=== PATIENT | female | born 2000 | race Caucasian/White ===

== ENCOUNTER 2024-07-20 18:58 | Inpatient (IN) | payer OTHER, SELFPAY ==
[2024-07-20 19:47] LABS: Hematocrit 37.2 % (36.0-48.0); Hemoglobin 12.4 g/dL (12.0-16.0); Mean Corpuscular HGB Conc 33.3 g/dL (29.9-35.2); Mean Corpuscular Hemoglobin 30.5 pg (26.7-34.0); Mean Corpuscular Volume 91.6 fL (81.0-99.0); Platelet Count 267 10^3/uL (150-450); Red Blood Count 4.06 10^6/uL (4.20-5.40); Red Cell Distribution Width 13.1 % (11.0-15.0)
[2024-07-20] MEDS: LACTATED RINGER'S SOLUTION 1,000 ML 125 ML IV (19:55)
[2024-07-20 19:58] LABS: Amphetamine Screen Urine NEGATIVE (NEGATIVE); Barbiturates Screen Urine NEGATIVE (NEGATIVE); Benzodiazepines Screen Urine NEGATIVE (NEGATIVE); Buprenorphine Screen Urine NEGATIVE (NEGATIVE); Cannabinoid Screen Urine NEGATIVE (NEGATIVE); Cocaine Screen Urine NEGATIVE (NEGATIVE); Methadone Screen Urine NEGATIVE (NEGATIVE); Methamphetamines Screen Urine NEGATIVE (NEGATIVE); Opiate Screen Urine NEGATIVE (NEGATIVE); Oxycodone Screen Urine NEGATIVE (NEGATIVE); Phencyclidine Screen Urine NEGATIVE (NEGATIVE); Tricyclic Antidepressant Urine NEGATIVE (NEGATIVE)
[2024-07-20] MEDS: OXYTOCIN/0.9 % SODIUM CHLORIDE 10 UNITS/500 ML PLAST..BAG 6 UNIT IV (20:21)
[2024-07-20 20:30] VITALS: BP 140/71; PULSE 93
[2024-07-20 21:00] VITALS: BP 131/83; PULSE 95
[2024-07-20 21:30] VITALS: BP 137/86; PULSE 80
[2024-07-20 22:00] VITALS: BP 144/92; PULSE 89
[2024-07-20 22:30] VITALS: BP 118/67; PULSE 70
[2024-07-20 23:00] VITALS: BP 124/72; PULSE 68
[2024-07-21] VITALS (55 sets, daily range): BP systolic 98–139; BP diastolic 54–91; PULSE 61–137; TEMP 36.3–37.4
[2024-07-21] MEDS: LACTATED RINGER'S SOLUTION 1,000 ML 125 ML IV ×2 (03:47→12:08)
[2024-07-21] MEDS: OXYTOCIN/0.9 % SODIUM CHLORIDE 10 UNITS/500 ML PLAST..BAG 6 UNIT IV (09:28)
[2024-07-21] MEDS: ONDANSETRON PF 4 MG/2 ML VIAL IV (13:02)
[2024-07-21] MEDS: NALBUPHINE HCL 10 MG/ML AMPULE 20 MG IM (13:15)
--- NOTE | 2024-07-21 14:34 | US_ITS ---
[address] [address] Patient Name: CRISPIN AYTES MRN: [id number] date: 2000 Sex: F Assigned Patient Location: [facility] Current Patient Location: [facility] Accession/Order Number: [id number] Exam Date: 07/21/2024 14:37 Report Date: 07/21/2024 15:05 At the request of: ODIN HOOK Procedure: US OB limited EXAM: US OB limited HISTORY: VERIFY PRESENTATION COMPARISON: None. TECHNIQUE: Transabdominal ultrasound. FINDINGS: Redictation: Cephalic Heart rate: 122 bpm GA: 40 weeks 4 days KEO: 07/17/2024 US/US OB limited IMPRESSION: 1. Single live intrauterine . 2. Cephalic presentation. Electronically authenticated by: ROSA ELNEA MCLEAN Date: 07/21/2024 15:05
[2024-07-21] MEDS: ROPIVACAINE HCL/PF 400 MG/200 ML PREMIX 6 MG EPIDURAL (15:00)
[2024-07-21] MEDS: EPHEDRINE SULFATE 50 MG/ML VIAL IV (15:00)
[2024-07-21] MEDS: LIDOCAINE VISCOUS 2% 15 ML SOLUTION 5 ML TOPICAL (17:47)
[2024-07-21] MEDS: OXYTOCIN/0.9 % SODIUM CHLORIDE 20 UNITS/1,000 ML PLAST..BAG 125 UNIT IV (18:47)
--- NOTE | 2024-07-21 19:35 | PM.OBPRCVD ---
Procedure Induction method: per pitocin protocol Delivery augmentation: rupture of membranes Delivery monitor: external FHT and external uterine Route of delivery: Episiotomy Description: none L&D Laceration Description: perineal - 2nd degree Delivery repair: Vicryl Estimated blood loss (mL): 400 Anesthesia type: None Infant Delivery date: 07/21/24 Gender: male presentation: compound (left hand presentation ) Placental delivery description: Expressed cord description: 3 Vessels heart rate - 1 minute: 100 bpm or Greater respiratory effort - 1 minute: Spontaneous/Strong Cry muscle tone - 1 minute: Active Movement reflex response - 1 minute: Prompt Response color - 1 minute: Bluish Hands or Feet total score - 1 minute: 9 heart rate - 5 minute: 100 bpm or Greater respiratory effort - 5 minute: Spontaneous/Strong Cry muscle tone - 5 minute: Active Movement reflex response - 5 minute: Prompt Response color - 5 minute: Bluish Hands or Feet total score - 5 minute: 9
--- NOTE | 2024-07-21 19:44 | PC.NURSE ---
1830 placenta remains undelivered, tc to dr yadav. 1838 dr yadav arrives and does some massage internally. 1840 placenta delivers intact pitocin hung at 999ml.hr, repair ongoing.
[2024-07-21] MEDS: IBUPROFEN 400 MG TABLET 800 MG PO (21:40)
[2024-07-21] MEDS: FERROUS SULFATE 325 MG TABLET PO (21:40)
[2024-07-22] MEDS: IBUPROFEN 400 MG TABLET 800 MG PO ×3 (03:24→20:52)
[2024-07-22 07:07] LABS: Basophils Percent Auto 0.2 % (0.2-2.0); Eosinophils Absolute Auto 0.1 10^3/uL (0.0-0.7); Eosinophils Percent Auto 0.3 % (0.9-7.0); Hematocrit 27.7 % (36.0-48.0); Immature Granulocytes Pct Auto 0.6 % (0.0-0.5); Lymphocytes Absolute Auto 2.9 10^3/uL (1.2-3.8); Mean Corpuscular HGB Conc 32.5 g/dL (29.9-35.2); Mean Corpuscular Hemoglobin 30.3 pg (26.7-34.0); Mean Corpuscular Volume 93.3 fL (81.0-99.0); Mean Platelet Volume 10.7 fL (9.5-13.5); Monocytes Absolute Auto 1.4 10^3/uL (0.3-0.8); Neutrophils Absolute Auto 13.4 10^3/uL (1.4-6.5); Neutrophils Percent Auto 74.9 % (43.0-75.0); Platelet Count 241 10^3/uL (150-450); Red Blood Count 2.97 10^6/uL (4.20-5.40); Red Cell Distribution Width 13.4 % (11.0-15.0); White Blood Count 17.9 10^3/uL (4.0-11.0)
[2024-07-22] MEDS: FERROUS SULFATE 325 MG TABLET PO ×2 (09:25→20:52)
[2024-07-22] MEDS: DOCUSATE SODIUM 100 MG CAPSULE PO ×2 (09:25→20:52)
[2024-07-22 09:29] VITALS: BP 133/75; PULSE 117; TEMP 36.8
--- NOTE | 2024-07-22 10:10 | P.OBPN_ITS ---
OB - PN: Subj Subjective Patient comments: no complaints Banner status: doing well feeding status: exclusively Exam Constitutional Vital Signs, click to edit/add: Last Vital Signs Temp 98.2 F 07/22/24 09:29 Pulse 117 H 07/22/24 09:29 Resp 16 07/22/24 09:30 BP 133/75 07/22/24 09:29 O2 Del Method Room Air 07/22/24 09:33 Documenting provider has reviewed patient's vital signs: yes Common normals: no apparent distress, average body habitus, oriented x3, no li mitations, healthy appearing, alert and well nourished Orientation/consciousness: Yes awake, Yes oriented to person, Yes oriented to place and Yes oriented to time HENMT Common normals: normocephalic Eye Common normals: EOMs intact bilaterally Neck & C-Spine Common normals: full ROM Lymph Lymphatic: no lymphadenopathy noted Chest Common normals: inspection of chest normal Respiratory Common normals: normal respiratory effort, no retractions, no use of accessory muscles, clear to auscultation bilaterally and percussion normal Auscultation: clear to auscultation bilaterally Cardio Common normals: regular rate and regular rhythm Rate: regular rate Rhythm: regular rhythm GI Common normals: Normal to inspection, nondistended, normoactive bowel sounds present Back & Pelvis Common normals: no CVA tenderness Extremity Common normals: normal to inspection Neuro Common normals: oriented x3 Sensorium/orientation: awake, alert, oriented to person, oriented to place and oriented to time Psych Common normals: mental status grossly normal, thought process normal and cooperative Attitude: calm Results Labs Labs: Short CBC 07/22/24 Range/Units 07:01 WBC 17.9 H (4.0-11.0) 10^3/uL Hgb 9.0 L (12.0-16.0) g/dL Hct 27.7 L (36.0-48.0) % Plt Count 241 (150-450) 10^3/uL OB - PN: A/P Plan - Vaginal Delivery day: 1 Plan: routine care Time Spent with Patient Time: Total time spent is greater than 50% in coordination of care (as documented) at patient's floor/unit and/or counseling patient: Total time spent with greater than 50% in coordination of care (as documented) at patient's floor/unit and/or counseling patient: less than 15 minutes
[2024-07-22] MEDS: ACETAMINOPHEN 325 MG TABLET 650 MG PO (13:23)
[2024-07-22 17:09] VITALS: BP 123/69; PULSE 95; TEMP 36.8
[2024-07-23 00:07] VITALS: BP 121/63; PULSE 76
[2024-07-23] MEDS: IBUPROFEN 400 MG TABLET 800 MG PO (04:10)
--- NOTE | 2024-07-23 08:38 | PM.OBPN ---
OB - PN: Subj Subjective Patient comments: no complaints and pain well controlled [place] status: doing well Exam Constitutional Vital Signs, click to edit/add: Last Vital Signs Temp 98.2 F 07/22/24 17:09 Pulse 76 07/23/24 00:07 Resp 16 07/22/24 09:30 BP 121/63 07/23/24 00:07 O2 Del Method Room Air 07/22/24 09:33 Documenting provider has reviewed patient's vital signs: yes Common normals: no apparent distress Respiratory Common normals: normal respiratory effort and clear to auscultation bilaterally Cardio Common normals: regular rate and regular rhythm GI Common normals: Normal to inspection, nondistended, normoactive bowel sounds present Extremity Common normals: no clubbing, cyanosis or edema OB - PN: A/P Plan - Vaginal Delivery day: 2 Plan: routine care, discharge home and follow up 6 weeks Time Spent with Patient Time: Total time spent is greater than 50% in coordination of care (as documented) at patient's floor/unit and/or counseling patient: Total time spent with greater than 50% in coordination of care (as documented) at patient's floor/unit and/or counseling patient: less than 15 minutes
[2024-07-23] MEDS: DOCUSATE SODIUM 100 MG CAPSULE PO (08:45)
[2024-07-23] MEDS: FERROUS SULFATE 325 MG TABLET PO (08:45)
[2024-07-23 09:41] VITALS: TEMP 36.6
[2024-07-23 09:42] VITALS: BP 130/69; PULSE 86
== END 2024-07-23 15:40 | disposition home or self-care (01) | DRG 560 ==
PROVIDERS: Admitting Provider Midwife; Visit Provider Obstetrics & Gynecology
DX: O32.6XX0 Maternal care for compound presentation, not applicable or unspecified (principal); O70.1 Second degree perineal laceration during delivery; Z3A.40 40 weeks gestation of pregnancy; Z37.0 Single live birth
CPT/HCPCS: 36415; 59050; 59410; 76815; 80307; 85025; 85027; 86850; 86900; 86901; J2300; J2405; J2795

== ENCOUNTER 2024-07-26 08:36 | Outpatient (OUT) | payer OTHER, SELFPAY ==
--- NOTE | 2024-07-26 11:59 | PC.NURSE ---
Yennifer and 5 day old Axel arrive with FOB for support. Yennifer states last night was so much better, he actually slept for 1-2 hour stretches in his bassinet . Describes changing feeding and sleep patterns for NB and adjustments as parents. FOB involved and helpful to Yennifer. VSS and assessment WNL for Yennifer, no concerns voiced for self. Reports milk in, full/engorged today but is improving from yesterday. Nipples reported to be tender and pinches a lot with latch. Nipples intact, red in color, with one bruised area on areola left side. Baby Axel awake, and alert, noted to have blow out diaper when taken out of car seat. mom reports has has frequent small stools with feeds but this is largest stool so far. VSS and assessment WNL for baby. Bili 10.7 transcutaneous. Parents report 12 feedings in last 24 hours, describes cluster feeds late evening and then slept 2 hour stretches between feeds. 8+ wet diapers and minimum of 6 stools yellow / brown in color Today's stool is bright yellow. Weight stable and increased since discharge. Baby to breast, mom has awkward positioning and hold for latch. ROXANNE filomena's cross cradle, belly to belly positioning and Axel latches himself as mom is asking questions. Surprised that baby latched so well . Reinforced positioning is important for deep, comfortable latch. Uses pillow for support. Mom independently switches to second breast during feed. Baby nursed both breasts for total of 35 minutes. sleeps. No further questions or concerns at this time. Aware of MOMS group and to call for concerns. Family leaves ambulatory.
[2024-07-26 12:00] VITALS: BP 120/81; PULSE 75; TEMP 36.8; O2SAT 98
== END 2024-07-26 11:25 | disposition home or self-care (01) ==
LOC: FBCO 08:37
PROVIDERS: Visit Provider Midwife
DX: Z39.2 Encounter for routine postpartum follow-up (principal)